=== PATIENT | female | born 1990 | race Caucasian/White ===

== ENCOUNTER 2019-10-06 00:35 | Emergency (ER) | payer MEDICAID ==
--- NOTE | 2019-10-06 01:48 | ED Physician Documentation ---
History of Present Illness - Stated complaint Stated Complaint: R HAND SWELLING - History obtained from History obtained from: Patient - History of Present Illness Timing: Yesterday Pain level now: 8 Improved by: rest Worsened by: palpation, movement - Additonal information Additional information: c/o right 2nd digit (index finger) pain since yesterday with swelling. denies recent injury ("jamming" injury over a week ago but these symptoms did not start until yesterday). Review of Systems Constitutional: denies: Fever Musculoskeletal: reports: Extremity pain, Extremity swelling Neurologic: denies: Focal weakness, Numbness PD PAST MEDICAL HISTORY - Past Medical History Cardiovascular: Hypertension Endocrine/Autoimmune: Type 2 diabetes - Past Surgical History Past Surgical History: No - Present Medications Home Medications: Ambulatory Orders Medication Instructions Recorded Confirmed Doxycycline Hyclate 100 mg PO BID #20 capsule 10/06/19 oxyCODONE [Roxicodone] 5 - 10 mg PO Q6H PRN #20 tablet 10/06/19 - Allergies Allergies/Adverse Reactions: Allergies Allergy/AdvReac Type Severity Reaction Status Date / Time Penicillins Allergy Rash Verified 10/06/19 01:57 diphenhydramine AdvReac Itching Verified 10/06/19 01:57 [From Benadryl] - Social History Does the pt smoke?: Yes Smoking Status: Current every day smoker Does the pt drink ETOH?: No Does the pt have substance abuse?: No - Immunizations Immunizations are current?: Yes - POLST Patient has POLST: No PD ED PE NORMAL - Vitals Vital signs reviewed: Yes - General General: Alert and oriented X 3, No acute distress, Well developed/nourished PD ED PE EXPANDED - Extremities Extremities: Other (the right index finger is circumferentially swollen and tender with poorly-marginated erythema. No fluctuance. Flexion and extension intact although increased pain with ROM. ) Results - Vitals Vitals: Vital Signs - 24 hr 10/06/19 02:11 Heart Rate 88 Respiratory 18 Rate Blood Pressure 126/80 O2 Saturation 99 Oxygen O2 Source Room air PD MEDICAL DECISION MAKING - ED course Complexity details: considered differential, d/w patient ED course: no fluctuance, no evidence of paronychia, no evidence of injury (puncture/abrasion/laceration). will give antibiotic and analgesics, rx for same, return if worse Departure - Departure Disposition: 01 Home, Self Care Clinical Impression: Tenosynovitis of finger Condition: Good Instructions: ED Infec Skin Cellulitis Prescriptions: Doxycycline Hyclate 100 mg PO BID #20 capsule oxyCODONE [Roxicodone] 5 - 10 mg PO Q6H PRN #20 tablet PRN Reason: Pain Comments: Follow up with your primary care provider in 3-4 days for recheck of the infection. Forms: Activity restrictions Discharge Date/Time: 10/06/19 02:12
[2019-10-06] MEDS ORDERED: DOXYCYCLINE 100 MG TABLET PO STA (02:04)
[2019-10-06] MEDS ORDERED: oxyCODONE/ACET 5/325 Prepack 4 PO STA (02:05)
[2019-10-06] MEDS ORDERED: oxyCODONE 5 MG TABLET PO STA (02:05)
[2019-10-06 02:12] VITALS: BP 126/80
== END 2019-10-06 02:12 | disposition home or self-care (01) ==
LOC: ED 00:35
DX: M65.9 Synovitis and tenosynovitis, unspecified (principal); I10 Essential (primary) hypertension; E11.9 Type 2 diabetes mellitus without complications; F17.200 Nicotine dependence, unspecified, uncomplicated
CPT/HCPCS: 99282; 99283; A9270

== ENCOUNTER 2021-01-14 22:39 | Emergency (ER) | payer MEDICAID ==
[2021-01-14 23:10] LABS: BILIRUBIN,URINE NEGATIVE (NEGATIVE); GLUCOSE, URINE (UA) NEGATIVE (NEGATIVE); KETONES,URINE (UA) TRACE mg/dL (NEGATIVE); LEUKOCYTE ESTERASE, URINE NEGATIVE (NEGATIVE); NITRITE,URINE POSITIVE (NEGATIVE); OCCULT BLOOD,URINE NEGATIVE (NEGATIVE); PROTEIN,URINE NEGATIVE (NEGATIVE); UROBILINOGEN,URINE 0.2 (NORMAL) E.U./dL (NORMAL)
[2021-01-14 23:13] LABS: CLARITY,URINE HAZY (CLEAR); HCG UR QUAL NEGATIVE
[2021-01-14 23:17] LABS: BACTERIA,URINE Moderate /HPF (None Seen); CRYSTALS,URINE 3-5 Calcium Oxalate /LPF; RBC,URINE 0-5 /HPF (0-5); SQUAMOUS EPITHELIAL CELL,UR MOD Squamous (<= Few)
[2021-01-14] MEDS ORDERED: KETOROLAC 60 MG/2 ML VIAL IM STA (23:26)
[2021-01-14 23:29] LABS: BASOPHILS % (AUTO) 0.4 %; EOSINOPHILS # (AUTO) 0.1 10^3/uL (0.0-0.7); EOSINOPHILS % (AUTO) 1.5 %; HCT - HEMATOCRIT 44.5 % (37.0-47.0); HGB - HEMOGLOBIN 14.6 g/dL (12.0-16.0); LYMPHOCYTES # (AUTO) 2.1 10^3/uL (1.5-3.5); LYMPHOCYTES % (AUTO) 26.5 %; MEAN CORPUSCULAR HEMOGLOBIN 29.9 pg (27.0-31.0); MEAN CORPUSCULAR HGB CONC 32.8 g/dL (32.0-36.0); MEAN CORPUSCULAR VOLUME 91.2 fL (81.0-99.0); MEAN PLATELET VOLUME 9.4 fL (7.9-10.8); MONOCYTES # (AUTO) 0.5 10^3/uL (0.0-1.0); MONOCYTES % (AUTO) 6.6 %; NEUTROPHILS # (AUTO) 5.1 10^3/uL (1.5-6.6); NEUTROPHILS % (AUTO) 64.7 %; PLT - PLATELET COUNT 283 10^3/uL (130-450); RED BLOOD COUNT 4.88 10^6/uL (4.20-5.40); RED CELL DISTRIBUTION WIDTH 12.4 % (12.0-15.0); WHITE BLOOD COUNT 7.9 x10^3/uL (4.8-10.8)
[2021-01-14 23:33] LABS: ALBUMIN 4.5 g/dL (3.2-5.5); ALBUMIN/GLOBULIN RATIO 1.5 (1.0-2.2); BILIRUBIN,TOTAL 0.4 mg/dL (0.2-1.0); CREATININE 0.9 mg/dL (0.4-1.0); POTASSIUM 3.8 mmol/L (3.5-5.0); TOTAL PROTEIN 7.5 g/dL (6.7-8.2)
--- NOTE | 2021-01-14 23:46 | ED Physician Documentation ---
PD HPI ABD PAIN - Stated complaint Stated Complaint: ABD SWELL - Chief complaint Chief Complaint: Abd Pain - History obtained from History obtained from: Patient - Additional information Additional information: PT comes to the ED with CC of L abdominal pain x "years" and a sense of swelling in the LLQ over weeks' time. No worsening of pain. No fever/chills, dysuria, diarrhea, N/V, or constipation. Pt has a h/o L ovarian cyst. Normal appetite. No vaginal complaints. No other complaints at this time. Pt states she is here because her friends wanted her to come. Review of Systems Ten Systems: 10 systems reviewed and negative Constitutional: reports: Reviewed and negative Eyes: reports: Reviewed and negative Ears: reports: Reviewed and negative Nose: reports: Reviewed and negative Throat: reports: Reviewed and negative Cardiac: reports: Reviewed and negative Respiratory: reports: Reviewed and negative GI: reports: Abdominal Pain, Reviewed and negative : reports: Reviewed and negative Skin: reports: Reviewed and negative Musculoskeletal: reports: Reviewed and negative Neurologic: reports: Reviewed and negative Psychiatric: reports: Reviewed and negative Endocrine: reports: Reviewed and negative Immunocompromised: reports: Reviewed and negative PD PAST MEDICAL HISTORY - Past Medical History Past Medical History: Yes Cardiovascular: Hypertension Respiratory: None Neuro: None Endocrine/Autoimmune: Type 2 diabetes GI: None RETORT ENGINEER: None : None HEENT: None Psych: None Musculoskeletal: None Derm: None - Past Surgical History Past Surgical History: No - Present Medications Home Medications: Ambulatory Orders Medication Instructions Recorded Confirmed No Known Home Medications 01/14/21 01/14/21 - Allergies Allergies/Adverse Reactions: Allergies Allergy/AdvReac Type Severity Reaction Status Date / Time Penicillins Allergy Rash Verified 01/14/21 22:45 diphenhydramine AdvReac Itching Verified 01/14/21 22:45 [From Benadryl] - Social History Does the pt smoke?: Yes Smoking Status: Current every day smoker Does the pt drink ETOH?: No Does the pt have substance abuse?: No - Immunizations Immunizations are current?: Yes - POLST Patient has POLST: No PD ED PE NORMAL - Vitals Vital signs reviewed: Yes - General General: Alert and oriented X 3, No acute distress, Well developed/nourished - HEENT HEENT: Atraumatic, PERRL, EOMI, Moist mucous membranes - Neck Neck: Supple, no meningeal sign - Cardiac Cardiac: RRR, No murmur, Strong equal pulses - Respiratory Respiratory: No respiratory distress, Clear bilaterally - Abdomen Abdomen: Soft, Non distended, Other (mild LUQ and LLQ tenderness, no RB/guarding.) - Derm Derm: Warm and dry - Extremities Extremities: No deformity - Neuro Neuro: Alert and oriented X 3 - Psych Psych: Normal mood, Normal affect Results - Vitals Vitals: Vital Signs - 24 hr 01/14/21 01/15/21 22:45 00:01 Temperature 36.6 C 36.5 C Heart Rate 100 88 Respiratory 16 15 Rate Blood Pressure 136/93 H 135/81 H O2 Saturation 100 99 Oxygen O2 Source Room air - Labs Labs: Laboratory Tests 01/14/21 01/14/21 01/14/21 22:45 23:16 23:16 WBC 7.9 RBC 4.88 Hgb 14.6 Hct 44.5 MCV 91.2 MCH 29.9 MCHC 32.8 RDW 12.4 Plt Count 283 MPV 9.4 Neut # (Auto) 5.1 Lymph # (Auto) 2.1 [place] # (Auto) 0.5 Eos # (Auto) 0.1 Baso # (Auto) 0.0 Absolute Nucleated RBC 0.00 Nucleated RBC % 0.0 Sodium 136 Potassium 3.8 Chloride 98 L Carbon Dioxide 28 Anion Gap 10.0 BUN 14 Creatinine 0.9 Estimated GFR (MDRD) 75 L Glucose 109 H Calcium 9.0 Total Bilirubin 0.4 AST 17 ALT 16 Alkaline Phosphatase 54 Total Protein 7.5 Albumin 4.5 Globulin 3.0 Albumin/Globulin Ratio 1.5 Lipase 29 Urine Color YELLOW Urine Clarity HAZY Urine pH 6.0 Ur Specific [place] >=1.030 H Urine Protein NEGATIVE Urine Glucose (UA) NEGATIVE Urine Ketones TRACE Urine Occult Blood NEGATIVE Urine Nitrite POSITIVE H Urine Bilirubin NEGATIVE Urine Urobilinogen 0.2 (NORMAL) Ur Leukocyte Esterase NEGATIVE Urine RBC 0-5 Urine WBC 4-5 Ur Squamous Epith Cells MOD Squamous H Urine Crystals 3-5 Calcium Oxalate Urine Bacteria Moderate H Ur Microscopic Review INDICATED Urine Culture Comments NOT INDICATED Urine HCG, Qual NEGATIVE PD MEDICAL DECISION MAKING - ED course Complexity details: reviewed results, re-evaluated patient, considered differential, d/w patient ED course: Pt was treated symptomatically and worked up with labs, which were unremarkable. The pt had chronic, long-standing sx, and a benign exam. Additionally, she did not have any acutely worrisome developments. As such, I did not feel that emergent imaging was indicated. We have discussed follow-up and the usual indications for return. Departure - Departure Disposition: 01 Home, Self Care Clinical Impression: Abdominal pain Qualifiers: Abdominal location: left lower quadrant Qualified Code(s): R10.32 - Left lower quadrant pain Condition: Stable Instructions: ED Abdominal Pain Unkn Cause Comments: Your labs look great. You do not have any of the other symptoms that would indicate a worrisome cause of your abdominal pain. Additionally, this is very chronic. It is important that you follow-up with your primary care physician to discuss whether an endoscopy or colonoscopy are needed to further assess the pain you are having. There is no evidence of an acute infectious cause. It is possible that the ovarian cyst that you have had in the past is expanding again and this can cause some pain. Fortunately, ovarian cysts usually fluctuate and most likely, if your cyst is expanding, and will shrink down again. You may use ibuprofen and/or Tylenol to help with the pain. Please call tomorrow to schedule follow-up appointment with your primary doctor. Discharge Date/Time: 01/15/21 00:01
[2021-01-15 00:02] VITALS: BP 135/81
== END 2021-01-15 00:01 | disposition home or self-care (01) ==
LOC: ED 22:39
DX: R10.32 Left lower quadrant pain (principal); F17.200 Nicotine dependence, unspecified, uncomplicated; I10 Essential (primary) hypertension; E11.9 Type 2 diabetes mellitus without complications
CPT/HCPCS: 36415; 80053; 81001; 81003; 81025; 83690; 85025; 87086; 96372; 99283; 99284

== ENCOUNTER 2021-02-01 22:00 | Emergency (ER) | payer MEDICAID ==
[2021-02-01] MEDS ORDERED: SUMAtriptan 6 MG/0.5 ML VIAL SUBQ STA (23:03)
--- NOTE | 2021-02-01 23:08 | ED Physician Documentation ---
History of Present Illness - Stated complaint Stated Complaint: CP/SOA - Chief complaint Chief Complaint: General - History obtained from History obtained from: Patient - Additonal information Additional information: 30yF with self -reported pmh htn, asthma, dm2 (not currently on meds, hasn't seen a pmd in 2 years), p/w body aches, headaches, chest pain, cough and shortness of breath ongoing for the past 2 weeks. not vaccinated against covid- 19. Patient is tearful on history, stating, "I just want to go home". Review of Systems Ten Systems: 10 systems reviewed and negative Constitutional: reports: Chills, Myalgias, Fatigue Cardiac: reports: Chest pain / pressure Respiratory: reports: Dyspnea, Cough (nonproductive) GI: reports: Abdominal Pain, Nausea. denies: Vomiting : denies: Dysuria, Frequency, Hematuria Skin: denies: Rash Neurologic: reports: Generalized weakness PD PAST MEDICAL HISTORY - Past Medical History Cardiovascular: Hypertension Respiratory: None Neuro: None Endocrine/Autoimmune: Type 2 diabetes GI: None NURSING HOME MANAGER: None : None HEENT: None Psych: None Musculoskeletal: None Derm: None - Past Surgical History Past Surgical History: No - Present Medications Home Medications: Ambulatory Orders Medication Instructions Recorded Confirmed No Known Home Medications 01/14/21 01/14/21 - Allergies Allergies/Adverse Reactions: Allergies Allergy/AdvReac Type Severity Reaction Status Date / Time Penicillins Allergy Rash Verified 02/01/21 22:04 diphenhydramine AdvReac Itching Verified 02/01/21 22:04 [From Benadryl] - Social History Does the pt smoke?: Yes Smoking Status: Current every day smoker Does the pt drink ETOH?: No Does the pt have substance abuse?: No - Immunizations Immunizations are current?: Yes - POLST Patient has POLST: No PD ED PE NORMAL - Vitals Vital signs reviewed: Yes - General General: Alert and oriented X 3, No acute distress, Well developed/nourished, Other (intermittently tearful. disheveled appearing) - HEENT HEENT: Atraumatic, PERRL, EOMI - Neck Neck: Supple, no meningeal sign - Cardiac Cardiac: RRR - Respiratory Respiratory: No respiratory distress, Clear bilaterally - Abdomen Abdomen: Non tender, Non distended - Back Back: No CVA TTP - Derm Derm: Normal color, Warm and dry - Extremities Extremities: No deformity - Neuro Neuro: Alert and oriented X 3 - Psych Psych: Other (tearful) Results - Vitals Vitals: Vital Signs - 24 hr 02/01/21 22:04 Temperature 37.3 C Heart Rate 126 H Respiratory 18 Rate Blood Pressure 110/94 H O2 Saturation 98 Oxygen O2 Source Room air PD MEDICAL DECISION MAKING - ED course ED course: 30yF presents with multiple medical complaints, all ongoing for past several weeks. Patient is requesting to go home. EKG without acute ischemic changes and her exam is benign. return precautions discussed. plan to f/u with a doctor in [facility] or with a pmd as recommended by her health insurance. Departure - Departure Disposition: 01 Home, Self Care Clinical Impression: Chest pain, Shortness of breath, Headache Condition: Stable Instructions: ED Chest Pain NonCardiac Comments: You were seen in the emergency department for medical evaluation. Your EKG and physical exam did not show any emergent findings. A covid swab was done which will result in 2-3 days. You should isolate at home until your results come back. You should then follow up with walk in clinic or call your insurance provider for health care providers to follow up with. When you call the office, tell them you were seen in the emergency department and need follow up. Please return to the emergency department if you have any new or worsening symptoms or other concerns.
[2021-02-01 23:25] VITALS: BP 102/76
== END 2021-02-01 23:25 | disposition home or self-care (01) ==
LOC: ED 22:00
DX: U07.1 COVID-19 (principal); R07.89 Other chest pain; R51.9 Headache, unspecified; I10 Essential (primary) hypertension; E11.9 Type 2 diabetes mellitus without complications; F17.200 Nicotine dependence, unspecified, uncomplicated
CPT/HCPCS: 93005; 96372; 99283; 99284

== ENCOUNTER 2021-03-03 13:18 | Emergency (ER) | payer MEDICAID ==
--- NOTE | 2021-03-03 15:55 | ED Physician Documentation ---
History of Present Illness - Stated complaint Stated Complaint: SOA, SWOLLEN LYMPH NODES - Chief complaint Chief Complaint: General - History obtained from History obtained from: Patient - Additonal information Additional information: 30-year-old woman with history of Covid about a month ago, states that everyone in her family has had lymphoma. She has a history of drug use but never used IV drugs. She has multiple complaints, all starting about a week ago. Main things are multiple areas of lymphadenopathy in the neck and axillae, may be a 20 to 30 pound weight loss, night sweats, shortness of breath and nausea. No measured fevers. No possibility of . Review of Systems Ten Systems: 10 systems reviewed and negative Constitutional: reports: Fever, Chills, Myalgias, Fatigue, Sweats Eyes: reports: Reviewed and negative Ears: reports: Reviewed and negative Nose: reports: Reviewed and negative Throat: reports: Reviewed and negative Respiratory: reports: Dyspnea PD PAST MEDICAL HISTORY - Past Medical History Cardiovascular: Hypertension Respiratory: None Neuro: None Endocrine/Autoimmune: Type 2 diabetes GI: None CLINICAL RN MANAGER: None : None HEENT: None Psych: None Musculoskeletal: None Derm: None - Past Surgical History Past Surgical History: No - Present Medications Home Medications: Ambulatory Orders Medication Instructions Recorded Confirmed Gabapentin [Neurontin] 300 mg PO TID #60 cap 03/03/21 - Allergies Allergies/Adverse Reactions: Allergies Allergy/AdvReac Type Severity Reaction Status Date / Time Penicillins Allergy Rash Verified 03/03/21 13:24 diphenhydramine AdvReac Itching Verified 03/03/21 13:24 [From Benadryl] - Social History Does the pt smoke?: Yes Smoking Status: Current every day smoker Does the pt drink ETOH?: No Does the pt have substance abuse?: No - Immunizations Immunizations are current?: Yes - POLST Patient has POLST: No PD ED PE NORMAL - Vitals Vital signs reviewed: Yes - General General: Alert and oriented X 3, No acute distress - HEENT HEENT: PERRL, EOMI - Neck Neck: Supple, no meningeal sign, No bony TTP, Other (Significant areas of adenopathy especially left posterior neck) - Cardiac Cardiac: RRR, No murmur - Respiratory Respiratory: No respiratory distress, Clear bilaterally - Abdomen Abdomen: Normal bowel sounds, Soft, Non tender - Back Back: No CVA TTP, No spinal TTP - Derm Derm: Normal color, Warm and dry, Other (Pruritic fine macular rash on the trunk) - Extremities Extremities: No edema, No calf tenderness / cord - Neuro Neuro: Alert and oriented X 3, Normal speech Results - Vitals Vitals: Vital Signs - 24 hr 03/03/21 03/03/21 03/03/21 13:24 16:21 17:09 Temperature 36.5 C Heart Rate 110 H 103 H 100 Respiratory 24 18 18 Rate Blood Pressure 132/81 H 124/87 H 126/93 H O2 Saturation 94 100 100 03/03/21 19:00 Temperature Heart Rate 103 H Respiratory 18 Rate Blood Pressure 137/77 H O2 Saturation 100 Oxygen O2 Source Room air - Labs Labs: Laboratory Tests 03/03/21 03/03/21 03/03/21 16:15 16:15 16:15 WBC 7.1 RBC 4.27 Hgb 12.3 Hct 38.1 MCV 89.2 MCH 28.8 MCHC 32.3 RDW 12.7 Plt Count 366 MPV 9.0 Neut # (Auto) 4.5 Lymph # (Auto) 1.9 [place] # (Auto) 0.4 Eos # (Auto) 0.2 Baso # (Auto) 0.0 Absolute Nucleated RBC 0.00 Nucleated RBC % 0.0 ESR 24 H Sodium 137 Potassium 3.8 Chloride 100 L Carbon Dioxide 28 Anion Gap 9.0 BUN 19 Creatinine 1.0 Estimated GFR (MDRD) 66 L Glucose 101 H Calcium 8.9 Total Bilirubin 0.4 AST 17 ALT 22 Alkaline Phosphatase 8 L C-Reactive Protein 1.3 H Total Protein 7.2 Albumin 3.5 Globulin 3.7 Albumin/Globulin Ratio 0.9 L Lipase 28 Urine Color Urine Clarity Urine pH Ur Specific [place] Urine Protein Urine Glucose (UA) Urine Ketones Urine Occult Blood Urine Nitrite Urine Bilirubin Urine Urobilinogen Ur Leukocyte Esterase Urine RBC Urine WBC Ur Squamous Epith Cells Urine Bacteria Ur Microscopic Review Urine Culture Comments Urine HCG, Qual Infectious [place] Assay 03/03/21 03/03/21 16:15 16:52 WBC RBC Hgb Hct MCV MCH MCHC RDW Plt Count MPV Neut # (Auto) Lymph # (Auto) [place] # (Auto) Eos # (Auto) Baso # (Auto) Absolute Nucleated RBC Nucleated RBC % ESR Sodium Potassium Chloride Carbon Dioxide Anion Gap BUN Creatinine Estimated GFR (MDRD) Glucose Calcium Total Bilirubin AST ALT Alkaline Phosphatase C-Reactive Protein Total Protein Albumin Globulin Albumin/Globulin Ratio Lipase Urine Color YELLOW Urine Clarity HAZY Urine pH 6.0 Ur Specific [place] 1.020 Urine Protein NEGATIVE Urine Glucose (UA) NEGATIVE Urine Ketones NEGATIVE Urine Occult Blood NEGATIVE Urine Nitrite NEGATIVE Urine Bilirubin NEGATIVE Urine Urobilinogen 0.2 (NORMAL) Ur Leukocyte Esterase TRACE H Urine RBC 0-5 Urine WBC 6-10 H Ur Squamous Epith Cells FEW Squamous Urine Bacteria Many H Ur Microscopic Review INDICATED Urine Culture Comments INDICATED Urine HCG, Qual NEGATIVE Infectious [place] Assay NEGATIVE PD MEDICAL DECISION MAKING - ED course ED course: 22-year-old woman presents after a month of Covid, now with rash, mostly on the trunk, shortness of breath, and significant adenopathy involving the posterior neck. Differential diagnosis includes MIS C, lymphoma, mono 30-year-old woman who had Covid a month ago presents with lymphadenopathy especially of the neck, rash and fatigue and weight loss. She has a strong family history of lymphoma. CT of the neck, chest, and abdomen pelvis showed several potentially concerning lymph nodes about the neck, but no acute findings in the chest abdomen or pelvis, reactive markers are elevated but not alarmingly so. Her main complaint was the burning neuropathic type pain in the lower extremities for which she was administered gabapentin. I discussed the case with Dr. Timmy Ivy, ENT in [facility], who will arrange for an expedited follow-up for biopsy. We will give her a copy of the CAT scan on CD to take with her to that appointment. Departure - Departure Disposition: 01 Home, Self Care Clinical Impression: Cervical adenopathy, Weight loss Dyspnea Qualifiers: Dyspnea type: other forms of dyspnea Qualified Code(s): R06.09 - Other forms of dyspnea Condition: Good Record reviewed to determine appropriate education?: Yes Prescriptions: Gabapentin [Neurontin] 300 mg PO TID #60 cap Comments: The CAT scan of your chest and belly really do not show a lot of lymph nodes, one in the left groin that is borderline. You do have the lymph nodes around your neck, the largest is 1.5 cm. Next step would be a biopsy, I discussed her case with Dr. Timmy Ivy, he is an ENT in [facility]. He will have their office call you tomorrow to arrange for expedited follow-up for that. Discharge Date/Time: 03/03/21 19:31
[2021-03-03 16:29] LABS: BASOPHILS % (AUTO) 0.6 %; EOSINOPHILS # (AUTO) 0.2 10^3/uL (0.0-0.7); EOSINOPHILS % (AUTO) 2.3 %; HCT - HEMATOCRIT 38.1 % (37.0-47.0); HGB - HEMOGLOBIN 12.3 g/dL (12.0-16.0); LYMPHOCYTES # (AUTO) 1.9 10^3/uL (1.5-3.5); LYMPHOCYTES % (AUTO) 27.1 %; MEAN CORPUSCULAR HEMOGLOBIN 28.8 pg (27.0-31.0); MEAN CORPUSCULAR HGB CONC 32.3 g/dL (32.0-36.0); MEAN CORPUSCULAR VOLUME 89.2 fL (81.0-99.0); MONOCYTES # (AUTO) 0.4 10^3/uL (0.0-1.0); MONOCYTES % (AUTO) 6.2 %; NEUTROPHILS # (AUTO) 4.5 10^3/uL (1.5-6.6); NEUTROPHILS % (AUTO) 63.5 %; PLT - PLATELET COUNT 366 10^3/uL (130-450); RED BLOOD COUNT 4.27 10^6/uL (4.20-5.40); RED CELL DISTRIBUTION WIDTH 12.7 % (12.0-15.0); WHITE BLOOD COUNT 7.1 x10^3/uL (4.8-10.8)
[2021-03-03 16:36] LABS: INFECTIOUS MONONUCLEOSIS NEGATIVE (Negative)
[2021-03-03 16:46] LABS: ALBUMIN 3.5 g/dL (3.2-5.5); ALBUMIN/GLOBULIN RATIO 0.9 (1.0-2.2); BILIRUBIN,TOTAL 0.4 mg/dL (0.2-1.0); CALCIUM 8.9 mg/dL (8.5-10.3); CRP - C-REACTIVE PROTEIN 1.3 mg/dL (0-1.0); POTASSIUM 3.8 mmol/L (3.5-5.0); TOTAL PROTEIN 7.2 g/dL (6.7-8.2)
[2021-03-03] MEDS ORDERED: IOVERSOL 320 100 ML VIAL IVP ONE (16:57)
[2021-03-03 16:58] LABS: BILIRUBIN,URINE NEGATIVE (NEGATIVE); GLUCOSE, URINE (UA) NEGATIVE (NEGATIVE); KETONES,URINE (UA) NEGATIVE (NEGATIVE); LEUKOCYTE ESTERASE, URINE TRACE (NEGATIVE); NITRITE,URINE NEGATIVE (NEGATIVE); OCCULT BLOOD,URINE NEGATIVE (NEGATIVE); PROTEIN,URINE NEGATIVE (NEGATIVE); UROBILINOGEN,URINE 0.2 (NORMAL) E.U./dL (NORMAL)
[2021-03-03 17:01] LABS: CLARITY,URINE HAZY (CLEAR); HCG UR QUAL NEGATIVE
[2021-03-03 17:18] LABS: BACTERIA,URINE Many /HPF (None Seen); RBC,URINE 0-5 /HPF (0-5); SQUAMOUS EPITHELIAL CELL,UR FEW Squamous (<= Few)
--- NOTE | 2021-03-03 18:33 | CT Report ---
PROCEDURE: Abdomen/Pelvis W INDICATIONS: iv only abd pain weight loss, lymphoma? CONTRAST: IV CONTRAST: Optiray 320 ml: 100 PO CONTRAST: *NO PO CONTRAST TECHNIQUE: After the administration of intravenous contrast, 5 mm thick sections acquired from the diaphragms to the symphysis. 5 mm thick coronal and sagittal reformats were acquired. For radiation dose reducti on, the following was used: automated exposure control, adjustment of mA and/or kV according to gissell ent size. COMPARISON: Same day CT chest. FINDINGS: Image quality: Excellent. ABDOMEN: Lung bases: Lung bases are clear. Heart size is normal. Solid organs: Liver and spleen are normal in size and enhancement. Spleen measures 10.3 cm. Gallblad obdulio is decompressed. Biliary system is non dilated. Pancreas enhances normally. No adrenal nodules . Kidneys demonstrate normal size and enhancement, without hydronephrosis. Peritoneum and bowel: Stomach is prominent. No small bowel obstruction. Prominent stool in the colon. Normal appendix. No free fluid or air. Nodes and vessels: No retroperitoneal or mesenteric adenopathy by size criteria. Aorta and inferior vena cava are normal in size. Miscellaneous: No ventral hernias. PELVIS: Genitourinary: Bladder is decompressed. Anteverted uterus. Tubal ligation. Miscellaneous: No inguinal hernias. Enlarged left groin lymph node measuring 1.4 cm, (). Bones: No suspicious bony lesions. No vertebral body compression fractures. IMPRESSION: 1. No acute inflammatory process demonstrated. Prominent stool in the colon. 2. Enlarged left groin lymph node is indeterminate. 3. No splenomegaly. Reviewed by: Linus Barclay MD on 03/03/2021 6:32 PM [facility] Approved by: Linus Barclay MD on 03/03/2021 6:32 PM PST Station ID: [id number]
--- NOTE | 2021-03-03 18:38 | CT Report ---
PROCEDURE: CHEST W INDICATIONS: dyspnea CONTRAST: IV CONTRAST: Optiray 320 ml: 100 PO CONTRAST: *NO PO CONTRAST TECHNIQUE: After the administration of intravenous contrast, 1 mm axial images were acquired from the pulmonary apices through the posterior costophrenic angles. Axial 5 mm soft tissue kernel reconstructions were performed as well as 8 mm axial MIP and coronal and sagittal 5 mm reformations. For radiation dose reduction, the following was used: automated exposure control, adjustment of mA and/or kV according to patient size. COMPARISON: Same day CT abdomen and pelvis. FINDINGS: Image quality: Excellent. Lungs and pleura: A couple of small pulmonary nodule. Left upper lobe 0.2 cm, (4/51). No acute air sp lashell opacities. No pleural effusions or pneumothorax. Central and peripheral airways are patent and normal in caliber. Mediastinum: Heart size is normal. No pericardial effusion. No mediastinal or hilar adenopathy by size criteria. Thoracic aorta and central pulmonary arteries are normal in size. Esophagus is tiffany l in caliber. No hiatal hernia. Bones and chest wall: No suspicious bony lesions. No vertebral body compression fractures. No axil massiel or supraclavicular adenopathy by size criteria. The thyroid is normal in size and there are no incidental findings. Abdomen: Visualized upper abdominal solid organs appear normal. Upper abdominal bowel loops are nor mal in caliber. IMPRESSION: No enlarged lymph nodes identified. No acute airspace opacity. Reviewed by: Linus Barclay MD on 03/03/2021 6:36 PM PST Approved by: Linus Barclay MD on 03/03/2021 6:36 PM PST Station ID: [id number]
--- NOTE | 2021-03-03 18:46 | CT Report ---
PROCEDURE: CT of the neck with contrast INDICATIONS: Palpable adenopathy. CONTRAST: IV CONTRAST: Optiray 320 ml: 100 PO CONTRAST: *NO PO CONTRAST TECHNIQUE: After the administration of intravenous contrast, 3.0 mm axial sections acquired from the sella to th e aortic arch. Additional oblique axial 3.0 mm sections acquired through the pharynx. 3 mm thick co margarita reformats were generated. For radiation dose reduction, the following was used: automated exp osure control, adjustment of mA and/or kV according to patient size. COMPARISON: None. FINDINGS: Image quality: Excellent. Lymph nodes: Level 1A and 1B lymphadenopathy measures up to 1.5 cm. Level 2A and 2B lymphadenopathy n oted as well measures up to 1.5 cm on the left. Smaller nonenlarged nodes noted in the bilateral leve l 3 and L4 stations. Vessels: Visualized vasculature appears patent. Neck spaces: The oropharynx, nasopharynx, and pharynx demonstrate no mucosal lesions. The vocal cor ds, false vocal cords, pyriform sinuses, epiglottis, vallecula, and tongue base all appear normal. E xtramucosal spaces appear unremarkable. Glands: The parotid and submandibular glands appear normal. The thyroid is normal in size and there are no incidental findings. Miscellaneous: Visualized brain and orbits appear normal. Lung apices appear clear. Superficial so ft tissues appear normal. Bones: No suspicious bony lesions. Visualized sinuses and mastoids appear unremarkable. IMPRESSION: Bulky bilateral level 1 and level 2 lymphadenopathy. While this could possibly be reactive, primary c onsideration would be lymphoma Reviewed by: Christopher Sigala MD on 03/03/2021 5:44 PM [facility] Approved by: Christopher Sigala MD on 03/03/2021 5:44 PM [facility] Station ID: [id number]
[2021-03-03] MEDS: GABAPENTIN 100 MG CAPSULE PO STA (19:00)
[2021-03-03 19:19] VITALS: BP 137/77
[2021-03-03] MEDS: IOVERSOL 320 100 ML VIAL IVP ONE (21:36)
--- NOTE | 2021-03-05 15:16 | ED Physician Documentation ---
ED Addendum - Addendum Addendum: 03/05/21 15:15 Status patient urinary culture reviewed. Greater than 100,000 colony-forming units, E. coli, jamison susceptible. We will have nursing staff call in short course of doxycycline.
== END 2021-03-03 19:31 | disposition home or self-care (01) ==
LOC: ED 13:18
DX: R59.0 Localized enlarged lymph nodes (principal); R63.4 Abnormal weight loss; N39.0 Urinary tract infection, site not specified; B96.20 Unspecified Escherichia coli [E. coli] as the cause of diseases classified elsewhere; I10 Essential (primary) hypertension; E11.9 Type 2 diabetes mellitus without complications; F17.200 Nicotine dependence, unspecified, uncomplicated; R21 Rash and other nonspecific skin eruption; Z86.16 Personal history of COVID-19
CPT/HCPCS: 36415; 70491; 71260; 74177; 80053; 81001; 81025; 83690; 85025; 85651; 86140; 86308; 87086; 87181; 99283; 99284; A9270; Q9967; 81003

== ENCOUNTER 2021-05-06 17:00 | Emergency (ER) | payer OTHER, MEDICAID ==
[2021-05-06] MEDS ORDERED: ONDANSETRON ODT 4 MG TABLET TL STA (19:02)
[2021-05-06] MEDS ORDERED: HYDROcod/ACETAM 5/325 MG TABLET PO STA (19:02)
[2021-05-06] MEDS ORDERED: TETANUS/DIPHTHERIA/PERTUSSIS 0.5 ML SYRINGE IM ONE (19:03)
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
[2021-05-06 21:03] VITALS: BP 140/85
== END 2021-05-06 21:15 | disposition home or self-care (01) ==
LOC: ED 17:00
DX: S02.2XXA Fracture of nasal bones, initial encounter for closed fracture (principal); S05.12XA Contusion of eyeball and orbital tissues, left eye, initial encounter; Y04.2XXA Assault by strike against or bumped into by another person, initial encounter; I10 Essential (primary) hypertension; E11.9 Type 2 diabetes mellitus without complications; F17.200 Nicotine dependence, unspecified, uncomplicated; Z23 Encounter for immunization
CPT/HCPCS: 70450; 70486; 90471; 90715; 99283; 99284; A9270; Q0162

== ENCOUNTER 2021-05-22 09:15 | Emergency (ER) | payer MEDICAID ==
[2021-05-22 09:48] VITALS: BP 145/88
[2021-05-22] MEDS ORDERED: ACYCLOVIR 200 MG CAPSULE PO STA (10:41)
[2021-05-22] MEDS ORDERED: HYDROcod/ACETAM 5/325 MG TABLET PO STA (10:43)
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
== END 2021-05-22 11:16 | disposition home or self-care (01) ==
LOC: ED 09:15
DX: A60.00 Herpesviral infection of urogenital system, unspecified (principal); I10 Essential (primary) hypertension; F17.200 Nicotine dependence, unspecified, uncomplicated; E11.9 Type 2 diabetes mellitus without complications
CPT/HCPCS: 99282; A9270

== ENCOUNTER 2022-02-20 20:59 | Emergency (ER) | payer MEDICAID, OTHER ==
[2022-02-20] MEDS ORDERED: KETOROLAC 30 MG/ML VIAL IM STA (22:17)
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
--- NOTE | 2022-02-21 00:26 | XRAY Report ---
PROCEDURE: Chest 2 View X-Ray INDICATIONS: R chest pain TECHNIQUE: 2 views of the chest. COMPARISON: Chest CT 03/03/2021. FINDINGS: Surgical changes and devices: None. Lungs and pleura: No pleural effusions or pneumothorax. Lungs are clear. Mediastinum: Mediastinal contours are normal. Heart size is normal. Bones and chest wall: No suspicious bony abnormalities. Soft tissues appear unremarkable. IMPRESSION: 1. No acute cardiopulmonary disease. Reviewed by: Inderjit Guillermo MD on 02/21/2022 12:25 AM PST Approved by: Inderjit Guillermo MD on 02/21/2022 12:25 AM [facility] Station ID: [id number]
[2022-02-21 01:13] VITALS: BP 137/81
== END 2022-02-21 01:20 | disposition home or self-care (01) ==
LOC: ED 20:59
DX: R07.89 Other chest pain (principal); R00.0 Tachycardia, unspecified; I10 Essential (primary) hypertension; E11.9 Type 2 diabetes mellitus without complications; J45.909 Unspecified asthma, uncomplicated; F17.200 Nicotine dependence, unspecified, uncomplicated
CPT/HCPCS: 93005; 96372; 99283; 99284

== ENCOUNTER 2022-03-14 22:29 | Emergency (ER) | payer MEDICAID ==
--- NOTE | 2022-03-14 23:35 | ED Physician Documentation ---
PD HPI HEENT - Stated complaint Stated Complaint: EAR PX/HEADACHE - Chief complaint Chief Complaint: Heent - History obtained from History obtained from: Patient - Additional information Additional information: Patient is a 31-year-old female presenting for evaluation of right ear pain and right-sided headache since yesterday. She denies fevers. She has been using Tylenol and Motrin without any improvement. She reports it feels like a lot of pressure in her ear. She denies recent congestion, cough or sore throat. 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 : None HEENT: None Psych: None Musculoskeletal: None Derm: None - Past Surgical History Past Surgical History: No - Present Medications Home Medications: Ambulatory Orders Medication Instructions Recorded Confirmed Cefuroxime Axetil [Cefuroxime] 500 mg PO BID 10 Days #20 tablet 03/14/22 - Allergies Allergies/Adverse Reactions: Allergies Allergy/AdvReac Type Severity Reaction Status Date / Time Penicillins Allergy Rash Verified 03/14/22 22:47 diphenhydramine AdvReac Itching Verified 03/14/22 22:47 [From Benadryl] - Social History Does the pt smoke?: Yes Smoking Status: Current every day smoker Does the pt drink ETOH?: No Does the pt have substance abuse?: No - Immunizations Immunizations are current?: Yes - POLST Patient has POLST: No PD ED PE NORMAL - General General: Alert and oriented X 3, No acute distress, Well developed/nourished - HEENT HEENT: Atraumatic, PERRL, EOMI, Moist mucous membranes, Pharynx benign, Other (Right TM is erythematous, dull, bulging, left TM is clear). No: Ears normal - Neck Neck: Supple, no meningeal sign - Cardiac Cardiac: RRR, No murmur - Respiratory Respiratory: No respiratory distress, Clear bilaterally - Abdomen Abdomen: Soft, Non tender - Derm Derm: Warm and dry - Neuro Neuro: Normal speech Results - Vitals Vitals: Vital Signs - 24 hr 03/14/22 03/14/22 22:40 23:44 Temperature 36.9 C 36.4 C L Heart Rate 108 H 111 H Respiratory 18 16 Rate Blood Pressure 145/109 H 132/65 H O2 Saturation 100 100 Oxygen O2 Source Room air PD MEDICAL DECISION MAKING - ED course ED course: Patient with right-sided ear pain and headache. Headache appears to be related to the ear pain. Her neuro exam is normal. She is afebrile and otherwise well- appearing. She does have signs of acute otitis media on exam. She will be started on antibiotics.She was counseled on continue with Motrin and Tylenol for pain. She is advised on return precautions. She is ambulatory at discharge. Departure - Departure Disposition: 01 Home, Self Care Clinical Impression: Right otitis media Condition: Stable Instructions: ED Otitis Media Acute Adult Prescriptions: Cefuroxime Axetil [Cefuroxime] 500 mg PO BID 10 Days #20 tablet Comments: You have an ear infection in the right ear. I have sent a prescription for an antibiotic and given you the first dose here tonight. [facility] [place]. Please make sure to complete the full 10-day course of the antibiotic. Please continue with anti-inflammatory medication such as ibuprofen and Tylenol for pain.Please continue to stay hydrated. Discharge Date/Time: 03/14/22 23:44
[2022-03-14 23:45] VITALS: BP 132/65
== END 2022-03-14 23:44 | disposition home or self-care (01) ==
LOC: ED 22:29
DX: H66.91 Otitis media, unspecified, right ear (principal); F17.200 Nicotine dependence, unspecified, uncomplicated
CPT/HCPCS: 99282; A9270

== ENCOUNTER 2022-06-04 02:07 | Emergency (ER) | payer MEDICAID ==
[2022-06-04 02:19] VITALS: BP 151/92
[2022-06-04] MEDS ORDERED: CLINDAMYCIN 150 MG CAPSULE PO STA (02:28)
[2022-06-04] MEDS ORDERED: HYDROcod/ACET 5/325 Prepack 4 PO STA (02:29)
--- NOTE | 2022-06-04 02:33 | ED Physician Documentation ---
PD HPI HEENT - Stated complaint Stated Complaint: JAW PX/SWOLLEN THROAT - Chief complaint Chief Complaint: Heent - History obtained from History obtained from: Patient - Additional information Additional information: Patient is a 32-year-old female presenting for evaluation of right lower dental pain that has been present for several days after cracking the tooth. She is also noted some surrounding swelling To the jawline. She has had no difficulties with swallowing. She has been using ibuprofen without improvement. She denies fever, chest pain, difficulty breathing. 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: None : None HEENT: None Psych: None Musculoskeletal: None Derm: None - Past Surgical History Past Surgical History: No - Present Medications Home Medications: Ambulatory Orders Medication Instructions Recorded Confirmed HYDROcod/ACETAM 5/325 [Pettus 5/325] 1 tab PO 10 PRN #10 tablet 06/04/22 clindamycin HCL [Cleocin HCl] 300 mg PO QID #28 cap 06/04/22 - Allergies Allergies/Adverse Reactions: Allergies Allergy/AdvReac Type Severity Reaction Status Date / Time Penicillins Allergy Rash Verified 06/04/22 02:13 diphenhydramine AdvReac Itching Verified 06/04/22 02:13 [From Benadryl] - Social History Does the pt smoke?: Yes Smoking Status: Current every day smoker Does the pt drink ETOH?: No Does the pt have substance abuse?: No - Immunizations Immunizations are current?: Yes - POLST Patient has POLST: No PD ED PE NORMAL - General General: Alert and oriented X 3, No acute distress, Well developed/nourished - HEENT HEENT: Atraumatic, Moist mucous membranes, Pharynx benign, Other (Tooth #32 with crack and decay, tenderness to the gum line and nearby buccal mucosa; no palpable abscess; normal speech; no trismus; no elevation to tongue) - Neck Neck: Supple, no meningeal sign - Cardiac Cardiac: RRR - Respiratory Respiratory: No respiratory distress, Clear bilaterally - Derm Derm: Warm and dry, No rash - Neuro Neuro: Normal speech Results - Vitals Vitals: Vital Signs - 24 hr 06/04/22 02:14 Temperature 36.6 C Heart Rate 95 Respiratory 16 Rate Blood Pressure 151/92 H O2 Saturation 100 Oxygen O2 Source Room air PD Medical Decision Making - ED course ED course: Patient presenting for evaluation of dental pain with cracked tooth and associated swelling. No visible abscess or signs of deep space infection. Her airway is clear. We will start patient on antibiotics and given list of dental resources. Small mount of narcotic pain medication was also provided to the patient. She is counseled on concerning symptoms to return for. Departure - Departure Disposition: Home, Self Care Clinical Impression: Dental infection Condition: Stable Instructions: ED Abscess Dental Prescriptions: clindamycin HCL [Cleocin HCl] 300 mg PO QID #28 cap HYDROcod/ACETAM 5/325 [Pettus 5/325] 1 tab PO 10 PRN #10 tablet PRN Reason: Pain Comments: It is very important that you follow-up with a dentist. When it comes to dental problems like yours, the emergency department can only offer a short-term solution to your long-term problem. A couple of low cost options for dental care include: [facility] in [place], calls [phone] for an appointment Or [facility] in [place], call [phone] for an appointment. I have sent prescriptions for pain medication and antibiotics to [facility] in [place]. I am prescribing a short course of narcotic pain medication for you. These are potentially dangerous and addictive medications that should be used carefully. These medications may constipate you. Take an kfmq-vqd-pfvglkj stool softener (docusate) twice daily with plenty of water while taking these medications. If you go 24 hours without a bowel movement, take ftdm-bic-avnnsmy miralax, per package instructions. Do not drink or drive while taking these medications. If you received narcotic or sedating medications while in the emergency department, do not drive for 24 hours. Store this medication in a safe, secure place and out of reach of children. It is a violation of federal law to give or sell this medication to another person or to use in a manner other than prescribed. The ED will not refill narcotic prescriptions, including prescriptions lost or stolen. To dispose of unwanted medications: 1. [facility] at [address] in [place] has a medication drop box. They accept prescription medications (in pill form) Wednesday through Wednesday 9:00 a.m. to 5:00 p.m. 2. [facility] accepts prescription medications (in pill form only) for disposal year round. Call for more information. 3. Contact the [facility] for the next [facility] sponsored prescription drug collection event. , x7310, or [phone]; Note that many narcotic pain relievers also contain Tylenol/acetaminophen. Please ensure that your total dose of acetaminophen from all sources does not exceed 3 g (3000 mg) per day. Discharge Date/Time: 06/04/22 02:39
== END 2022-06-04 02:39 | disposition home or self-care (01) ==
LOC: ED 02:07
DX: K04.7 Periapical abscess without sinus (principal); K03.81 Cracked tooth; F17.200 Nicotine dependence, unspecified, uncomplicated
CPT/HCPCS: 99282; 99283; A9270